=== PATIENT | female | born 1995 ===

== ENCOUNTER 2024-09-18 23:24 | Emergency (ER) | payer OTHER, SELFPAY ==
[2024-09-18 23:30] VITALS: BP 140/81; PULSE 75; RESP 17; TEMP 36.5; O2SAT 98; BMI 26.5
--- OUTSIDE RECORDS SUMMARY | 2024-09-19 05:38 | XMS_ITS | Clinical Summary ---
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 Name Role Phone Glynn Iniguez Primary Care Provider + Allergies Active Allergy Reactions Criticality Noted Date Comments Bee Venom Protein (Honey Bee) 2023 Medications No known medications Social History Tobacco Use Types Packs/Day Years Used Date Smoking Tobacco: Never Assessed Comments Unknown Sex and Gender Information Value Date Recorded Sex Assigned at Not on file Legal Sex Female 11:41 AM EDT Gender Identity Not on file Sexual Orientation Not on file Last Filed Vital Signs Vital Sign Reading Time Taken Comments Blood Pressure 118/85 02/03/2024 2:57 PM EST Pulse 84 02/03/2024 2:57 PM EST Temperature - - Respiratory Rate - - Oxygen Saturation - - Inhaled Oxygen Concentration - - Weight 78 kg (172 lb) 02/03/2024 2:57 PM EST Height 165.1 cm (5' 5 ) 02/03/2024 2:57 PM EST Body Mass Index 28.62 02/03/2024 2:57 PM EST Plan of Treatment Health Maintenance Due Date Last Done Comments Hepatitis B Vaccines (1 of 3 - 19+ 3-dose series) 2012 Cervical Cancer Screening: P ap Smear 2014 COVID-19 Vaccine (2023-2 5 season) 2023 09/01/2021, 04/02/2021, 03/03/2021 Depression Screening 12/23/2023 HIV Screening 12/23/2023 Hepatitis C Screening 12/23/2023 Social Influencers of Health Screening 12/23/2023 Influenza Vaccine (Season Ended) 2024 12/20/2022 DTaP,Tdap,and Td Vaccines (3 - Td or Tdap) 11/03/2028 11/03/2018, 06/28/2016 HIB Vaccines Aged Out No longer eligi ble based on patient's age to complete this topic HPV Vaccines Aged Out No longer eligi ble based on patient's age to complete this topic Hepatitis A Vaccines Aged Out No long er eligible based on patient's age to complete this topic IPV Vaccines Aged Out No longer eligi ble based on patient's age to complete this topic MMR Vaccines Aged Out No longer eligi ble based on patient's age to complete this topic Meningococcal ACWY Vaccine Aged Out N o longer eligible based on patient's age to complete this topic Meningococcal B Vaccine Aged Out No l onger eligible based on patient's age to complete this topic Pneumococcal Vaccine: Pediatrics (0 to 5 Years) and At-Risk Patients (6 to 49 Years) Aged Out No longer eligible b ased on patient's age to complete this topic RSV Immunization Patients Under 20 months Aged Out No longer eligible b ased on patient's age to complete this topic Varicella Vaccines Aged Out No longer eligible based on patient's age to complete this topic Insurance MEDICAID ADVANTAGE Care Teams Hand Ornament Maker Relationship Specialty Start Date End Date Glynn Iniguez PA [address] [place] [address] PCP - General 02/03/24
== END 2024-09-19 05:45 | disposition left against medical advice (07) ==
PROVIDERS: Emergency Provider Emergency Medicine; PCP Student in an Organized Health Care Education/Training Program
DX: M79.672 Pain in left foot (principal); Z53.21 Procedure and treatment not carried out due to patient leaving prior to being seen by health care provider
CPT/HCPCS: 99281

== ENCOUNTER 2024-09-22 11:36 | Emergency (ER) | payer OTHER, SELFPAY ==
[2024-09-22 11:38] VITALS: BP 136/87; PULSE 96; RESP 18; TEMP 36.1; O2SAT 100; BMI 22.7
--- NOTE | 2024-09-22 11:42 | ECG_ITS ---
Test Reason : DIZZINESS Blood Pressure : */* mmHG Vent. Rate : 96 BPM Atrial Rate : 96 BPM P-R Int : 124 ms QRS Dur : 66 ms QT Int : 336 ms P-R-T Axes : 67 64 34 degrees QTcB Int : 424 ms Normal sinus rhythm with sinus arrhythmia Normal ECG No previous ECGs available Referred By: Kristopher Raymundo Electronically Signed By: Alexander Ward
--- NOTE | 2024-09-22 11:42 | ED.GENADULT ---
HPI - General Adult General Chief complaint: Allergic Reaction Stated complaint: Allergic Reaction to Allery Shot Time Seen by Provider: 09/22/24 11:49 Source: patient and old records reviewed Mode of arrival: ambulatory Limitations: no limitations History of Present Illness ED Provider: MESERET KAUFMAN narrative: 28 yo female with PMH of asthma and allergies who has been receiving allergy shots for a while. She just had RUE allergy shots yesterday now notes she had some chest tightness as well as swelling to the arm with itching. No oral swelling. Took benadryl with some relief. She is on chronic zyrtec. She has never had a reaction like this before. She is not on OCPs. MD complaint: arm pain/swelling Onset (ago): day(s) (1) Location: right and upper extremity Radiation: non-radiation Severity: moderate Quality: other Pain Consistency: constant Relieving factors: none Exacerbating factors: immobilization Associated symptoms: other Treatments prior to arrival: none Related Data Previous Rx's ?Medication ?Instructions ?Recorded hydrocortisone 1 % topical cream 1 appl topical BID PRN rash #28.35 09/22/24 grams Allergies Allergy/AdvReac Type Severity Reaction Status Date / Time No Known Allergies Allergy Verified 09/22/24 11:43 Review of Systems Review of Systems: Constitutional : No Fever, No Chills, pos malaise ENT/Mouth : No sore throat, No Rhinorrhea Eyes: No Eye Pain, No Swelling, No Redness Cardiovascular : No Chest Pain, No SOB Respiratory : No Cough, No Sputum Gastrointestinal : No Nausea, No Vomiting, No Diarrhea, No abdominal Pain Genitourinary : No Dysuria, No Hematuria Musculoskeletal : No joint pain, No Myalgias, No Joint Swelling Skin : No Skin Lesions, positive skin rash Neuro : No Weakness, No Numbness, No Headache All other systems reviewed and are negative PMFSH Past Medical History Attestation statement: The following information was validated with the patient. Source: old records reviewed Social History Social History Advance Directives: No Advance Directives Information Provided: Yes Do you have a plan to hurt others: No Plan Physical Exam ED Vital Signs: Vital Signs - 24 hr 09/22/24 11:38 Temperature 96.9 F Pulse Rate 96 Respiratory Rate 18 Blood Pressure 136/87 Pulse Oximetry 100 Oxygen Delivery Method Room Air BMI result Body Mass Index 22.7 Appearance: Alert. Oriented X3. No acute distress. Eyes: Pupils equal, round and reactive to light. ENT: Pharynx normal. Neck: Normal inspection. Neck supple. CVS: Normal heart rate and rhythm. Pulses normal. Respiratory: No respiratory distress. Breath sounds normal. Abdomen: Soft and nontender. Skin: Skin warm and dry. Normal skin color. Normal skin turgor. Extremities: No lower extremity edema. RUE pink area across bicep to inner arm but no lymphangitis, no heat it has been itchy distal NV intact, can make bicep muscle no issue Neuro: Oriented X 3. No motor deficit. No sensory deficit. CN2-12 intact Course Course Course Narrative: RME, this is a rapid medical exam performed by Raul Raymundo please refer to primary provider for complete H&P- 28 year old female presents for evaluation of a rash to her right arm and dizziness. She reports that she got an allergy shot yesterday at 2pm and noticed redness and swelling at the injection site a few hours later. She complains of dizziness and heaviness. Plan for basic labs, ekg. She last took Benadryl at 0400 this morning. No urticaria or facial edema Medical Decision Making Medical Decision Making [facility] Narrative: 28 yo female with sig PMH of allergies and asthma had injections for her allergies which are routine now she feels her chest is heavy, doesn't feel good and R arm is pink and swelling. There no fluctuance or heat, she can make a bicep her lungs are clear, no oral swelling. At this time suspect local reaction but based off her symptoms EKG and basic labs ordered. PERC Negative doubt VTE. to prevent failure of shots will use topical steroids instead of oral. DC with wound precautions Differential Diagnosis Differential Diagnoses: The differential diagnosis associated with the presentation includes localized reaction, doubt cellulitis Admission/Observation Consideration of admission/observation: Escalation of care including admission/observation considered VS stable, no hypoxia no airway or resp issues Lab Data [facility] Lab Attestation statement: I reviewed the patient's lab results. normal 09/22/24 11:54 09/22/24 11:54 Labs: Lab Results 09/22/24 Range/Units 11:54 WBC 9.3 (4.8-10.8) X10*3/uL RBC 4.86 (4.20-5.50) X10*6/uL Hgb 14.4 (12.0-16.0) g/dl Hct 42.7 (37.0-47.0) % MCV 87.9 (80.0-98.0) fL MCH 29.6 (27.0-33.0) pg MCHC 33.7 (31.0-35.0) g/dl RDW 12.6 (11.0-16.0) % Plt Count 160 (160-400) X10*3/uL MPV 12.0 (9.4-12.3) fL Immature Gran % (Auto) 0.3 (0.0-0.4) % Neut % (Auto) 69.8 (45-73) % Lymph % (Auto) 20.7 (20-40) % Morrill % (Auto) 7.1 (2-11) % Eos % (Auto) 2.0 (0-4) % Baso % (Auto) 0.1 (0-2) % Lymph # (Auto) 1.9 (1.2-4.9) X10*3/uL Morrill # (Auto) 0.7 (0.1-1.2) X10*3/uL Eos # (Auto) 0.2 (0.0-0.4) X10*3/uL Baso # (Auto) 0.0 (0.0-0.2) X10*3/uL Abs Immat Gran (auto) 0.03 (0.00-0.03) X10*3/uL Absolute Neuts (auto) 6.5 (2.0-8.3) x10*3/uL Absolute Nucleated RBC 0.000 (0.0-0.012) X10*3/uL Nucleated RBC % (auto) 0.0 (0.0-0.2) /100WBC Independent Interpretation I performed an independent interpretation of an: EKG Interpretation: Rate: 96 Rhythm: NSR Wilson: normal Normal P waves. Normal ZANDER. Normal QRS complex. ST T wave : normal no PRETTY, no acute ischemia qTC: 424 prior studies: no acute ischemia The study has been interpreted contemporaneously by me. . External Record Review External record reviewed: Outpatient record Prescription Management I considered prescription management with: Other Discharge Plan Discharge Clinical Impression: Swelling at injection site Patient Disposition: Home, Self-Care Instructions: General Allergic Reaction (ED) Additional Instructions: return for worsening pain, redness, swelling fevers you do not have a white blood cell count monitor for worsening swelling, fevers, pain or change in rash call if you think it is worse and they will reach me Prescriptions: New hydrocortisone 1 % cream 1 appl topical BID PRN (Reason: rash) Qty: 28.35 0RF Print Language: Pakistani
[2024-09-22 11:59] LABS: MANUAL DIFF FLAG NO
[2024-09-22 12:02] LABS: Hematocrit 42.7 % (37.0-47.0); Hemoglobin 14.4 g/dl (12.0-16.0); Imm Gran Abs Auto 0.03 X10*3/uL (0.00-0.03); Imm Gran Pct Auto 0.3 % (0.0-0.4); Lymphocytes Absolute Auto 1.9 X10*3/uL (1.2-4.9); Mean Corpuscular HGB Conc 33.7 g/dl (31.0-35.0); Mean Corpuscular Hemoglobin 29.6 pg (27.0-33.0); Mean Corpuscular Volume 87.9 fL (80.0-98.0); NRBC Abs Auto 0.000 X10*3/uL (0.0-0.012); NRBC Pct Auto 0.0 /100WBC (0.0-0.2); Platelet Count 160 X10*3/uL (160-400); Red Blood Count 4.86 X10*6/uL (4.20-5.50); White Blood Count 9.3 X10*3/uL (4.8-10.8)
[2024-09-22 12:20] LABS: Alanine Aminotransferase 18 U/L (0-31); Albumin Level 4.6 g/dL (3.5-5.0); Alkaline Phosphatase 64 U/L (39-117); Anion Gap 11 (12-20); Aspartate Amino Transferase 21 U/L (5-31); Blood Urea Nitrogen 18 mg/dL (9-16); Calcium 9.0 mg/dL (8.4-10.2); Carbon Dioxide 26 mmol/L (22-29); Chloride 106 mmol/L (96-108); Creatinine Clr Calc Pharmacy 69.5; Estimated Glomerular Filt Rate 55; Potassium 4.7 mmol/L (3.3-5.1); Sodium 138 mmol/L (135-145); Total Protein 7.4 g/dL (6.5-8.0)
--- OUTSIDE RECORDS SUMMARY | 2024-09-22 12:22 | XMS_ITS | Clinical Summary ---
Author Organization [facility] [address] Address [address] [place] [address] Care Team Providers Care Director Dietetics Department Name Role Phone Glynn Iniguez Primary Care [...] Influencers of Health Screening 12/23/2023 Influenza Vaccine (#1) 2024 12/20/2022 DTaP,Tdap,and Td Vaccines (3 - [...] this topic Insurance MEDICAID ADVANTAGE Care Teams Director Dietetics Department Relationship Specialty Start Date End Date Glynn Iniguez PA [address] [place] [address] PCP - General 02/03/24
[2024-09-22 12:32] VITALS: BP 125/72; PULSE 72; RESP 16; TEMP 37.1; O2SAT 99
[2024-09-22 12:41] LABS: Appearance Urine Clear; Glucose Urine UA Negative (Negative); PH 6.5 (5.0-9.0); Specific Gravity - Urine 1.010 (1.005-1.025); UMIC TRIGGER UACC YES
[2024-09-22 12:45] LABS: UACC Culture Trigger YES
[2024-09-22 12:57] VITALS: BP 125/72; PULSE 72; RESP 16; TEMP 37.1; O2SAT 99
== END 2024-09-22 13:01 | disposition home or self-care (01) ==
PROVIDERS: Physician Assistant; Emergency Provider Emergency Medicine; PCP Student in an Organized Health Care Education/Training Program
DX: M79.621 Pain in right upper arm (principal); R21 Rash and other nonspecific skin eruption; R22.31 Localized swelling, mass and lump, right upper limb
CPT/HCPCS: 36415; 80053; 81001; 84702; 85025; 87086; 93005; 99283; 99285

== ENCOUNTER → 2024-09-22 11:42 | Outpatient (BNV) | payer OTHER, SELFPAY | PROVIDERS: Emergency Provider Emergency Medicine; PCP Student in an Organized Health Care Education/Training Program; Visit Provider Internal Medicine Cardiovascular Disease | DX: R42 Dizziness and giddiness (principal) | CPT/HCPCS: 93010 ==